=== PATIENT | female | born 1985 | race Caucasian/White ===

== ENCOUNTER 2016-12-26 05:14 | Inpatient (IN) | payer OTHER ==
[~2016-12-26] VITALS: Ht 172.7 cm; Wt 113.4 kg
--- NOTE | 2016-12-26 08:55 | Operative Report ---
Operative/Inv Procedure Report Surgery Date: 12/26/16 Name of Procedure: Primary low flap transverse section via Pfannenstiel skin incision Pre-Operative Diagnosis: breech Post-Operative Diagnosis: Same footling breech Estimated Blood Loss: 500 Surgeon/Car Seat Upholsterer: DAY BARROS,REGGIE Guo Anesthesia: block Operative/Procedure Note Note: Vaginal patient was taken the operating room placed prone position after adequate skin testing for spinal anesthesia skin was cut 2 fingerbreadths of symptoms pubis in midline carried down to rectus fascia which was cut in curvilinear fashion I direction peritoneal cavity was entered high into the abdomen the low blade the Nicola was placed and lower in the incision the visceral peritoneum of the uterus was dissected anteriorly to develop a bladder flap in the lower uterine segment uterus nicked entered with the back of knife dissected bluntly as well as sharply the was delivered over the abdominal wall I complete breech extraction suction well until clear. Cord was reduced clamped and cut and infant was handed to arabic translator was waiting delivering to aid in resuscitation placenta was delivered manually wiped clean with 2 wet dry laps to ensure was free of adherent membranes was oversewn running locking suture in 2 layers after intramyometrial and intra-muscular Pitocin had been started dictating uterine contractility. Uterus re-turned to abdominal cavity. Then was area close amounts warm sounds were clear the peritoneum was reapproximated 0 suture after hemostasis was apparent the fascia was reapproximated to continue sutures of #1 suture the subcutaneous tissue was Bovie coagulated found to be hemostatic the skin was reapproximated pedro at the end of the case the counts correct mother and transported recovery room awake and alert together Findings: Viable female infant three-vessel cord around neck around body times one normal ovaries bilaterally complete for footling breech otherwise normal anatomy
[2016-12-27 04:50] VITALS: BP 157/77
--- NOTE | 2016-12-27 10:40 | PN- Post Delivery/GYN ---
Subjective Subjective: NO COMPLAINTS Objective Last 24 Hrs of Vital Signs/I&O Vital Signs Date Time Temp Pulse Resp B/P Pulse O2 O2 Flow FiO2 Ox Delivery Rate 12/27 0450 157/77 Physical Exam: PE OBESE WF IN NAD AND SOFT DISTENTION INCISION [facility] -[facility] -[facility] Assessment/Plan Assessment/Plan ASSESS S/P C/S FOR BREECH PLAN CONT POC ADVANCE DIET
[2016-12-27 11:09] LABS: ABSOLUTE BASOPHIL COUNT 0 /CUMM (0.0-0.2); ABSOLUTE EOSINOPHIL COUNT 0.1 /CUMM (0.0-0.7); ABSOLUTE MONOCYTE COUNT 0.7 /CUMM (0.10-0.60); PLATELET COUNT 207 /CUMM (130-400); WHITE BLOOD CELL COUNT 10.5 /CUMM (4.8-10.8)
[2016-12-27 11:16] LABS: ABSOLUTE GRANULOCYTE CT 7.8 /CUMM (1.4-6.5); ABSOLUTE LYMPH COUNT 1.9 /CUMM (1.2-3.4); BASOPHIL % 0.2 % (0.0-2.0); EOSINOPHIL % 0.6 % (0-5); GRANULOCYTE % 74.8 % (42.2-75.2); MEAN CORPUSCULAR HGB 27.5 PG (27.0-31.0); MEAN CORPUSCULAR HGB CONC 32.4 G/DL (33.0-37.0); MEAN PLATELET VOLUME 9.2 FL (7.4-10.4); RBC DISTRIBUTION WIDTH 15.4 % (11.5-14.5); RED BLOOD CELL CT 3.49 /CUMM (4.20-5.40)
[2016-12-27 11:18] LABS: HEMATOCRIT 29.7 % (37-47)
[2016-12-28] MEDS ORDERED: PERCOCET 5-3251 EACH PO (13:51)
[2016-12-28] MEDS ORDERED: IBUPROFEN800 M1 PO (13:51)
--- NOTE | 2017-01-15 08:33 | Surgical Discharge Summary ---
Visit Information Visit Dates Admission Date: 12/26/16 Discharge Date: 12/29/16 History of Present Illness Chief Complaint: Breech Medical History Isolation History: Standard Surgical History Pertinent Surgical History: none Psychosocial History What is Your Primary Language? Somali Review of Systems: -13 point review of systems Hospital Course Course Attending Physician: REGGIE BERNSTEIN MD Primary Care Physician: PATIENT HAS NO PRIMARY CARE DR Hospital Course: Her 1-year-old 1 para 0 admitted for a primary low flap transverse section for breech after failed cephalic version patient did well tolerating clear liquid diet first postoperative day discharged home on third postoperative day with normal blood pressures on the following physical exam she 's a pleasant white female HEENT anicteric lungs clear heart S1 and S2 abdomen soft incision clean dry and intact extremities negative edema negative Homans Allergies: Uncoded Allergies: (UNKNOWN ANTIBIOTIC) (Intermediate, RASH FROM UNKNOWN ANTIBIOTIC PER CBC RN, DRUG UNKNOWN 12/26/16) Disposition Summary Disposition Principal Diagnosis: Is post primary low flap transverse section for breech Additional Diagnosis: Anemia Discharge Disposition: home or self care Discharge Instructions General Discharge Information Code Status: Full Code Patient's Diet: R Patient's Activity: On nothing in the vagina for 6 weeks no heavy lifting for 6 weeks no driving for 2 weeks patient may shower Follow-Up Instructions/Appts: 2 weeks in my office 1 week for the removal pedro return visit Medications at Discharge Discharge Medications: Start taking the following new medications: Ibuprofen (Ibuprofen) 800 MG TABLET 800 Milligram ORAL EVERY SIX HOURS NEEDED as needed for UTERINE CRAMPING Qty = 30 No Refills Comments: did not receive in hospital Oxycodone HCl/Acetaminophen (Percocet 5-325 MG Tablet) 5 MG-325 MG TABLET 1 Tablet ORAL EVERY 4 HOURS NEEDED as needed for PAIN SCALE 4-6 (MODERATE ) Qty = 30 No Refills Comments: did not receive in hospital
== END 2016-12-29 11:35 | DRG 766 ==
LOC: GNO 05:14
PROVIDERS: ADMIT Specialist
PROC: 10D00Z1 Extraction of Products of Conception, Low, Open Approach (ICD-10-PCS; principal; 2016-12-26)
DX: O32.8XX0 Maternal care for other malpresentation of fetus, not applicable or unspecified (principal); O69.81X0 Labor and delivery complicated by cord around neck, without compression, not applicable or unspecified; Z3A.39 39 weeks gestation of pregnancy; Z37.0 Single live birth
CPT/HCPCS: GNOS; 36415; 87086; 88307; J0131; J0690; J1580; J1650; J1885; J7120

== ENCOUNTER 2016-12-31 17:19 | Inpatient (IN) | payer OTHER ==
[~2016-12-31] VITALS: Ht 172.7 cm; Wt 104.0 kg
[~2016-12-31 17:19] MED LIST: IBUPROFEN800 M1 PO; PERCOCET 5-3251 EACH PO
[2016-12-31 18:12] LABS: ABSOLUTE BASOPHIL COUNT 0 /CUMM (0.0-0.2); ABSOLUTE EOSINOPHIL COUNT 0.1 /CUMM (0.0-0.7); ABSOLUTE GRANULOCYTE CT 7.9 /CUMM (1.4-6.5); ABSOLUTE LYMPH COUNT 1.7 /CUMM (1.2-3.4); ABSOLUTE MONOCYTE COUNT 0.8 /CUMM (0.10-0.60); BASOPHIL % 0.2 % (0.0-2.0); GRANULOCYTE % 75.6 % (42.2-75.2); HEMATOCRIT 36.9 % (37-47); MEAN CORPUSCULAR HGB 27.6 PG (27.0-31.0); MEAN CORPUSCULAR HGB CONC 32.6 G/DL (33.0-37.0); MEAN CORPUSCULAR VOLUME 84.6 FL (81.0-99.0); MEAN PLATELET VOLUME 8.5 FL (7.4-10.4); PLATELET COUNT 320 /CUMM (130-400); RBC DISTRIBUTION WIDTH 15.8 % (11.5-14.5); RED BLOOD CELL CT 4.36 /CUMM (4.20-5.40); WHITE BLOOD CELL COUNT 10.4 /CUMM (4.8-10.8)
--- NOTE | 2017-01-01 00:21 | RADIOLOGY REPORT ---
EXAMINATION: XR PORTABLE CHEST CLINICAL INFORMATION: Chest pain. COMPARISON: None TECHNIQUE: Portable AP view of the chest was obtained. FINDINGS: The lungs are well expanded. No consolidation, edema, or effusion. No pneumothorax. The cardiomediastinal silhouette is within normal limits for this technique. No acute osseous abnormality. IMPRESSION: No acute pulmonary findings.
--- NOTE | 2017-01-01 00:58 | Cons- Medical ---
OLMAN BARROS,DODIE 01/01/17 0043: General Information and HPI Consulting Request Date of Consult: 01/01/17 Requested By: REGGIE BERNSTEIN MD Reason for Consult: Evaluation for pulmonary embolus Source of Information: patient, family, old records History of Present Illness: Ingrid is a 31-year-old woman status post section for breech . Was admitted to the [facility] for persistent hypertension. At present she is completely asymptomatic. She endorsed some chest discomfort that lasted less than 15 minutes, was nonpleuritic non-positional nonexertional and resolves spontaneously. There was also some rib pain that lasted seconds. She also admits some transient blurring of vision, that has since resolved. She denies any cough lightheadedness dizziness, subjective fevers or chills, calf pain personal or family history of clotting disorders. History of using oral contraceptives, however given she stopped using them more than 10 months ago. Former smoker quit 10 months ago. Allergies/Medications Allergies: Uncoded Allergies: (UNKNOWN ANTIBIOTIC) (Intermediate, RASH FROM UNKNOWN ANTIBIOTIC PER CBC RN, DRUG UNKNOWN 12/26/16) Home Med List: Ibuprofen 800 MG TABLET 800 MG PO Q6P PRN UTERINE CRAMPING Oxycodone HCl/Acetaminophen (Percocet 5-325 MG Tablet) 5 MG-325 MG TABLET 1 TAB PO Q4P PRN PAIN SCALE 4-6 (MODERATE) Current Medications: Current Medications Sig/Vikki Start time Last Medication Dose Route Stop Time Status Admin Dextrose/Lactated 1,000 ML Q13H 12/31 2330 AC 12/31 Ringer's IV 2230 Magnesium Sulfate 4 GM ONCE ONE 12/31 2330 DC 12/31 Sterile Water 100 ML IV 01/01 0029 2145 Magnesium Sulfate 40 GM Q20H 12/31 2330 AC 12/31 Water 1,000 ML IV 2230 Review of Systems Review of Systems Constitutional: Denies: see HPI. All Other Systems: Reviewed and Negative Comments with exceptions noted in hpi Past History Surgical History Surgical History: Psychosocial History Where Do You Live? Home Who Do You Live With? spouse Primary Language: Tongan Smoking Status: Former Smoker ETOH Use: occasional use Illicit Drug Use: denies illicit drug use Exam & Diagnostic Data Last 24 Hrs of Vital Signs/I&O n/a Physical Exam General Appearance: well developed/nourished, no apparent distress, alert, awake Head: atraumatic, normal appearance Eyes: Bilateral: normal appearance, PERRL, EOMI. Ears, Nose, Throat: normal ENT inspection Neck: normal inspection, supple, absence of JVD Respiratory: normal breath sounds, chest non-tender, no respiratory distress, quiet respiration, lungs clear Cardiovascular: regular rate/rhythm Breasts Breast appear nl Peripheral Pulses: 2+ radial (R), 2+ radial (L) Gastrointestinal: normal bowel sounds, soft, non-tender, no organomegaly Rectal: deferred Back: normal inspection Extremities: normal inspection, normal capillary refill, normal range of motion, pedal edema (+1) Neurologic/Psych: no motor/sensory deficits, awake, alert, oriented x 3 Cranial Nerves: normal hearing, normal speech, PERRL, CN II-XII intact, strength 5/5 x 4 ext Skin: intact, normal color Lymphatic: no anterior cervical brittney Last 24 Hrs of Labs/Eddie: Laboratory Tests 01/01/17 1540: Anion Gap 14, Estimated GFR > 60, Glucose 93, Calcium 7.4 L, Phosphorus 5.5 H, Magnesium 6.7 H, Total Bilirubin 1.0, AST 21, ALT 37, Albumin 3.6 01/01/17 0910: Anion Gap 13, Estimated GFR > 60, BUN/Creatinine Ratio 8.8, Phosphorus 5.7 H, Magnesium 6.2 H, CBC w Diff NO MAN DIFF REQ, RBC 4.96, MCV 83.5, MCH 27.6, RDW 15.8 H, MPV 8.2, Gran % 81.7 H, Lymphocytes % 11.8 L, Monocytes % 5.9, Eosinophils % 0.5, Basophils % 0.1, Absolute Granulocytes 8.8 H, Absolute Lymphocytes 1.3, Absolute Monocytes 0.6, Absolute Eosinophils 0, Absolute Basophils 0, PUBS MCHC 33.0 01/01/17 0850: Magnesium Cancelled 01/01/17 0400: Magnesium Cancelled, APTT Cancelled, CBC w Diff Cancelled, WBC Cancelled, RBC Cancelled, Hgb Cancelled, Hct Cancelled, MCV Cancelled, MCH Cancelled, RDW Cancelled, Plt Count Cancelled, MPV Cancelled, PUBS MCHC Cancelled 01/01/17 0305: Anion Gap 8, Estimated GFR > 60, BUN/Creatinine Ratio 11.3, Magnesium 4.4 H, Total Bilirubin 1.1, Direct Bilirubin 0.4, AST 19, ALT 41, Alkaline Phosphatase 110, Jfj-H-Yuijudmcxjr Pept 3720 H, Total Protein 5.9 L, Albumin 3.2 L, PT 10.7, INR 1.02, CBC w Diff NO MAN DIFF REQ, RBC 4.38, MCV 84.0, MCH 27.3, RDW 16.0 H, MPV 8.2, Gran % 71.3, Lymphocytes % 18.4 L, Monocytes % 7.6, Eosinophils % 2.3, Basophils % 0.4, Absolute Granulocytes 6.6 H, Absolute Lymphocytes 1.7, Absolute Monocytes 0.7 H, Absolute Eosinophils 0.2, Absolute Basophils 0, PUBS MCHC 32.5 L Diagnostic Data CXR Results normal Assessment/Plan Assessment/Plan 31-year-old former smoker woman with no medical history status post section for breech admitted with hypertensive urgency. Baby is born at term and healthy. Medical consultation sought for evaluation of pulmonary embolism. Ingrid is not experiencing chest discomfort that is typically seen with pulmonary embolism, is not hypoxic, is not tachycardic. A massive pulmonary embolus would conversely cause hypotension not hypertension. She does not have any JVD. Presently is asymptomatic. VSS stable. Outpatient labs unremarkable. CXR is normal. Unfortunately there is no validated tool to assess pretest probability in . and post- state does put her at risk for hypercoagulability. Nevertheless her well's score for pulmonary embolus is 1.5 i.e. low risk. Checking a d-dimer would be of limited utility in a or post- patient. Her high blood pressure, and the endorsement of blurry vision is concerning. Given low probability and normal CXR she should undergo V/ Q scan if PE moves up on the differential. At this time we are more concerned with her high blood pressure, evidence of pre-eclampsia, and possibility of post - cardiomyopathy. - Problems - Hypertensive emergency Pre-eclampsia ? Pulmonary embolus Recommendations: - Obtain CBC, BMP, LFTs, pro-bnp - Continue to monitor - If dyspneic, suggest ABG, and VQ scan given normal CXR and low probability of PE - Advise adequate BP control, consider labetalol. - EKG now - Echocardiogram in am - Consider cardiology consultation if hypertension refractory to treatment with Mg sulfate and labetalol. Consult Acknowledgment - Thank you for your consult request. MARKY DIAZ 01/01/17 0703: Assessment/Plan Consult Acknowledgment - Thank you for your consult request. Attending MD Review Statement Attending Statement Attending MD Statement: examined this patient, discuss w/resident/PA/HOME DELIVERY DRIVER, agreed w/resident/PA/HOME DELIVERY DRIVER, discussed with family, reviewed EMR data (avail), reviewed images, amended to note Attending Assessment/Plan: Patient's chest tightness and heaviness was transient, improved at the time we assessed patient. PE is low on differential. Preeclampsia, with persistent lower extremity edema, blurry vision, proteinuria, and elevated blood pressure. Agree with labetalol, magnesium, checking BMP, replace electrolytes. If dyspnea, work of breathing, chest tightness persists, consider VQ scan. ProBNP and 2-D echo to rule out cardiomyopathy.
[2017-01-01 03:41] LABS: ABSOLUTE BASOPHIL COUNT 0 /CUMM (0.0-0.2); ABSOLUTE EOSINOPHIL COUNT 0.2 /CUMM (0.0-0.7); ABSOLUTE GRANULOCYTE CT 6.6 /CUMM (1.4-6.5); ABSOLUTE LYMPH COUNT 1.7 /CUMM (1.2-3.4); ABSOLUTE MONOCYTE COUNT 0.7 /CUMM (0.10-0.60); BASOPHIL % 0.4 % (0.0-2.0); EOSINOPHIL % 2.3 % (0-5); GRANULOCYTE % 71.3 % (42.2-75.2); HEMATOCRIT 36.8 % (37-47); MEAN CORPUSCULAR HGB 27.3 PG (27.0-31.0); MEAN CORPUSCULAR HGB CONC 32.5 G/DL (33.0-37.0); MEAN PLATELET VOLUME 8.2 FL (7.4-10.4); PLATELET COUNT 312 /CUMM (130-400); RED BLOOD CELL CT 4.38 /CUMM (4.20-5.40); WHITE BLOOD CELL COUNT 9.2 /CUMM (4.8-10.8)
[2017-01-01 03:42] LABS: PT 10.7 SEC (9.4-12.5)
--- NOTE | 2017-01-01 07:46 | PN- Medicine Consult ---
Assessment/Plan Assessment/Plan Assessment: Assessment- 1. Post HTN, Post day 6, likely preeclampsia 2. Hypertensive emergency 3. Hypokalemia 4. ? post cardiomyopathy Plan: Plan- 1. Pending AM EKG 2. This AM her BP was 158/90, required 10 mg IV poush of labetolol 3. Replete electrolytes and recheck labs at 9 AM 4. Pending echocardiogram 5. Continue Magsulfate drip as per OB-CUSTOMER SERVICE SALES CONSULTANT 6. Consider Cardiology consult 7. She is not tachypnic or tachycardic, consider PE but lower on the differential, if needed will consider V/Q scan 8. Given new crackles on b/l bases will repeat CXR portable to r/o pleural effusion Subjective Subjective: Pt seen and examied, resting comfortably in bed. Offers no complaints. Review of Systems Constitutional: Denies: see HPI. Objective Last 24 Hrs of Vital Signs/I&O Vital Signs Date Time Temp Pulse Resp B/P Pulse O2 O2 Flow FiO2 Ox Delivery Rate 01/01 0305 98.5 90 18 168/100 Physical Exam General Appearance: well developed/nourished, no apparent distress Ears, Nose, Throat: normal pharynx, normal ENT inspection Cardiovascular: regular rate/rhythm, edema Respiratory: normal breath sounds, chest non-tender, no respiratory distress, crackles (b/l bases) Abdomen: normal bowel sounds, soft, non-tender (surgical scar clean and dry) Back: normal inspection, normal range of motion Extremities: normal inspection, normal capillary refill, normal range of motion Reflexes: 2+: knee (R), knee (L), ankle (R), ankle (L). Skin: intact, normal color Current Medications: Current Medications Sig/Vikki Start time Last Medication Dose Route Stop Time Status Admin Dextrose/Lactated 1,000 ML Q13H 12/31 2330 AC 12/31 Ringer's IV 2230 Labetalol HCl 10 MG ONCE ONE 01/01 0715 DC IV 01/01 0716 Labetalol HCl 20 MG ONCE ONE 01/01 0300 DC 01/01 IV 01/01 0301 0305 Magnesium Sulfate 4 GM ONCE ONE 12/31 2330 DC 12/31 Sterile Water 100 ML IV 01/01 0029 2145 Magnesium Sulfate 40 GM Q20H 12/31 2330 AC 03/15 Water 1,000 ML IV 2230 Magnesium Sulfate 40 GM .STK-MED ONE 12/31 2216 DC IV 12/31 221 Potassium Chloride 40 MEQ ONCE ONE 01/01 0445 DC 01/01 PO 01/01 0446 0505 Potassium Chloride 40 MEQ Q13H 01/01 0445 CAN Dextrose/Water 1,000 ML IV Potassium Chloride 40 MEQ Q13H 01/01 0445 AC 01/01 Dextrose/Sodium 1,000 ML IV 0505 Chloride Potassium Chloride 20 MEQ Q13H 01/01 0400 CAN Dextrose/Water 1,000 ML IV Results Last 24 Hrs Lab/Eddie Results: Laboratory Tests 01/01/17 0400: Magnesium Cancelled, APTT Cancelled, CBC w Diff Cancelled, WBC Cancelled, RBC Cancelled, Hgb Cancelled, Hct Cancelled, MCV Cancelled, MCH Cancelled, RDW Cancelled, Plt Count Cancelled, MPV Cancelled, PUBS MCHC Cancelled 01/01/17 0305: Anion Gap 8, Estimated GFR > 60, BUN/Creatinine Ratio 11.3, Magnesium 4.4 H, Total Bilirubin 1.1, Direct Bilirubin 0.4, AST 19, ALT 41, Alkaline Phosphatase 110, Vvi-G-Ixixleatazd Pept 3720 H, Total Protein 5.9 L, Albumin 3.2 L, PT 10.7, INR 1.02, CBC w Diff NO MAN DIFF REQ, RBC 4.38, MCV 84.0, MCH 27.3, RDW 16.0 H, MPV 8.2, Gran % 71.3, Lymphocytes % 18.4 L, Monocytes % 7.6, Eosinophils % 2.3, Basophils % 0.4, Absolute Granulocytes 6.6 H, Absolute Lymphocytes 1.7, Absolute Monocytes 0.7 H, Absolute Eosinophils 0.2, Absolute Basophils 0, PUBS MCHC 32.5 L 12/31/16 1814: Ur Random Creatinine Cancelled, U Random Total Protein Cancelled 12/31/16 1740: Estimated GFR > 60, Uric Acid 6.5 H, AST 19, ALT 42, Lactate Dehydrogenase 681 H, CBC w Diff NO MAN DIFF REQ, RBC 4.36, MCV 84.6, MCH 27.6, RDW 15.8 H, MPV 8.5, Gran % 75.6 H, Lymphocytes % 15.8 L, Monocytes % 7.4, Eosinophils % 1.0, Basophils % 0.2, Absolute Granulocytes 7.9 H, Absolute Lymphocytes 1.7, Absolute Monocytes 0.8 H, Absolute Eosinophils 0.1, Absolute Basophils 0, PUBS MCHC 32.6 L 12/31/16 1730: Ur Random Creatinine 154.1, U Random Total Protein 14.2 H, Protein/Creatinin Ratio 0.00 12/31/16 1730: Urine Color YEL, Urine Clarity CLEAR, Urine pH 7.0, Ur Specific Irons 1.015, Urine Protein TRACE H, Urine Ketones NEG, Urine Nitrite NEG, Urine Bilirubin NEG, Urine Urobilinogen 1.0, Ur Leukocyte Esterase NEG, Ur Microscopic SEDIMENT EXAMINED, Urine RBC 3-5, Ur Epithelial Cells MOD H, Urine Bacteria RARE H, Urine Hemoglobin SMALL H, Urine Glucose NEG Microbiology 01/01 0300 URINE ROUT: Urine Culture - RECD Recent Imaging Studies: PATIENT: JESSI CLAROS PRESENT AGE: 31 PATIENT ACCOUNT NO: [id number] : 84 LOCATION: [facility] ORDERING PHYSICIAN: REGGIE BERNSTEIN MD SERVICE DATE: 12/31/16- EXAM TYPE: RAD - XRY-PORTABLE CHEST XRAY EXAMINATION: XR PORTABLE CHEST CLINICAL INFORMATION: Chest pain. COMPARISON: None TECHNIQUE: Portable AP view of the chest was obtained. FINDINGS: The lungs are well expanded. No consolidation, edema, or effusion. No pneumothorax. The cardiomediastinal silhouette is within normal limits for this technique. No acute osseous abnormality. IMPRESSION: No acute pulmonary findings. DICTATED BY: VILLA REYES MD DATE/TIME DICTATED:01/01/1716 GRANITE COUNTERTOP INSTALLER:FISH DATE/TIME TRANSCRIBED:01/01/1716 CONFIDENTIAL, DO NOT COPY WITHOUT APPROPRIATE AUTHORIZATION. <Electronically signed in Other Vendor System> SIGNED BY: VILLA REYES MD 01/01 0021
--- NOTE | 2017-01-01 09:15 | RADIOLOGY REPORT ---
EXAMINATION: XR PORTABLE CHEST CLINICAL INFORMATION: New crackles at the lung bases. COMPARISON: TECHNIQUE: Portable AP view of the chest was obtained. FINDINGS: The cardiomediastinal silhouette is normal. The lungs appear clear. No consolidation, pulmonary edema, pleural effusion, or pneumothorax is convincingly visualized. No change from prior. The spine is not well visualized due to technique. Otherwise no acute osseous abnormalities are evident. IMPRESSION: No acute abnormality.
--- NOTE | 2017-01-01 09:38 | Cons- CRCU ---
THANG BARROS,[facility] 01/01/17 0938: General Information and HPI History of Present Illness: This is a 31-year-old lady with no significant past medical history, status post section for breech ( day 6), admitted initially to [facility] for evaluation and management of persistent hypertension after she was found to have systolic blood pressure over 160 upon her checkup. Yesterday she endorsed some chest discomfort that lasted less than 15 minutes, was nonpleuritic non-positional nonexertional and resolves spontaneously. There was also some rib pain that lasted seconds. She also admits some transient blurring of vision, that has since resolved. She denies any cough lightheadedness dizziness, subjective fevers or chills, calf pain personal or family history of clotting disorders. History of using oral contraceptives, however given she stopped using them more than 10 months ago. Former smoker quit 10 months ago. At childbirth center patient received magnesium sulfate and labetalol pushes but still blood pressure still remained elevated. Here by it was decided to transfer patient to ICU for close continuous monitoring. At present she denies any blurry vision, headache, dizziness, lightheadedness, chest pain, hypertension, a bit nauseous but no vomiting, no abdominal pain. Allergies/Medications Allergies: Uncoded Allergies: (UNKNOWN ANTIBIOTIC) (Intermediate, RASH FROM UNKNOWN ANTIBIOTIC PER CBC RN, DRUG UNKNOWN 12/26/16) Home Med List: Ibuprofen 800 MG TABLET 800 MG PO Q6P PRN UTERINE CRAMPING Oxycodone HCl/Acetaminophen (Percocet 5-325 MG Tablet) 5 MG-325 MG TABLET 1 TAB PO Q4P PRN PAIN SCALE 4-6 (MODERATE) Past History Surgical History Surgical History: Psychosocial History Where Do You Live? Home Who Do You Live With? spouse Primary Language: Latvian Smoking Status: Former Smoker ETOH Use: occasional use Illicit Drug Use: denies illicit drug use Exam & Diagnostic Data Last 24 Hrs of Vital Signs/I&O Vital Signs Date Time Temp Pulse Resp B/P Pulse O2 O2 Flow FiO2 Ox Delivery Rate 01/01 0931 98.1 93 18 163/104 01/01 0710 99.1 96 18 158/89 01/01 0305 98.5 90 18 168/100 Physical Exam General Appearance: well developed/nourished Head: atraumatic, normal appearance Respiratory: normal breath sounds Assessment/Plan Impression/Plan: This is a 31-year-old lady with no significant past medical history, status post section for breech ( day 6), admitted initially to child[facility] Center for evaluation and management of persistent hypertension after she was found to have systolic blood pressure over 160 upon her checkup. Yesterday she endorsed some chest discomfort that lasted less than 15 minutes, was nonpleuritic non-positional nonexertional and resolves spontaneously. There was also some rib pain that lasted seconds. She also admits some transient blurring of vision, that has since resolved. She denies any cough lightheadedness dizziness, subjective fevers or chills, calf pain personal or family history of clotting disorders. History of using oral contraceptives, however given she stopped using them more than 10 months ago. Former smoker quit 10 months ago. At childbirth center patient received magnesium sulfate and labetalol pushes but still blood pressure still remained elevated. Here by it was decided to transfer patient to ICU for close continuous monitoring. Currently monitoring her for the following conditions: Respiratory: No issues. Currently satting well on room air. Infectious disease: Afebrile, white count stable Cardiovascular: Hypertension: Status post section for breech ( day 6), admitted initially to child[facility] Center for evaluation and management of persistent hypertension after she was found to have systolic blood pressure over 160 upon her checkup. At childbirth center patient received magnesium sulfate and labetalol pushes but still blood pressure still remained elevated. Currently receiving magnesium, labetalol tab 100 mg twice a day, and monitor blood pressure closely. Questionable -induced cardiomyopathy, proBNP 3720, chest x-ray did not show any acute cardiac pulmonary abnormality echocardiogram pending, cardiology on board, with follow-up with recommendation. Hematology : H&H 13.7 and 41.4, platlet 330 Metabolic; Hypo-kalemia: Levels upon presentation to 2.8>>3.2, given 60 mg KDUR, will follow repeat labs. DVT prophylaxis: Diet: Currently on full liquid diet with advance as tolerated Patient is full code. Problem List: 1. Mild pre-eclamptic toxemia 2. Consult Acknowledgment - Thank you for your consult request. PEÑA ARIZA MD 01/01/17 0954: General Information and HPI Consulting Request Date of Consult: 01/01/17 Requested By: Dr. Saba Reason for Consult: hypertension post Source of Information: patient Exam Limitations: no limitations Allergies/Medications Current Medications: Current Medications Sig/Vikki Start time Last Medication Dose Route Stop Time Status Admin Acetaminophen 650 MG ONCE ONE 01/01 0815 DC 01/01 PO 01/01 0816 0815 Dextrose/Lactated 1,000 ML Q13H 12/31 2330 DC 12/31 Ringer's IV 2230 Labetalol HCl 100 MG BID 01/01 1000 AC 01/01 PO 0931 Labetalol HCl 10 MG ONCE ONE 01/01 0715 DC 01/01 IV 01/01 0716 0710 Labetalol HCl 20 MG ONCE ONE 01/01 0300 DC 01/01 IV 01/01 0301 0305 Magnesium Sulfate 4 GM ONCE ONE 12/31 2330 DC 12/31 Sterile Water 100 ML IV 01/01 0029 2145 Magnesium Sulfate 40 GM Q20H 12/31 2330 AC 12/31 Water 1,000 ML IV 2230 Magnesium Sulfate 40 GM .STK-MED ONE 12/31 2217 DC IV 12/31 2218 Potassium Chloride 40 MEQ ONCE ONE 01/01 0445 DC 01/01 PO 01/01 0446 0505 Potassium Chloride 40 MEQ Q13H 01/01 0445 CAN Dextrose/Water 1,000 ML IV Potassium Chloride 40 MEQ Q13H 01/01 0445 AC 01/01 Dextrose/Sodium 1,000 ML IV 0505 Chloride Potassium Chloride 20 MEQ Q13H 01/01 0400 CAN Dextrose/Water 1,000 ML IV Exam & Diagnostic Data Last 48 Hrs of Labs/Eddie: Laboratory Tests 01/02/17 0420: Anion Gap 11, Estimated GFR > 60, Glucose 95, Calcium 7.4 L, Phosphorus 5.0 H, Magnesium 3.5 H, Total Bilirubin 1.1, AST 15, ALT 33, Albumin 3.2 L, CBC w Diff NO MAN DIFF REQ, RBC 4.49, MCV 84.8, MCH 27.3, RDW 15.4 H, MPV 8.0, Gran % 77.3 H, Lymphocytes % 14.7 L, Monocytes % 7.2, Eosinophils % 0.8, Basophils % 0 L, Absolute Granulocytes 9.0 H, Absolute Lymphocytes 1.7, Absolute Monocytes 0.8 H, Absolute Eosinophils 0.1, Absolute Basophils 0, PUBS MCHC 32.2 L 01/01/17 1851: Anion Gap 14, Estimated GFR > 60, Glucose 92, Calcium 7.4 L, Phosphorus 5.0 H, Magnesium 4.1 H, Total Bilirubin 1.1, AST 17, ALT 38, Albumin 3.5 01/01/17 1540: Anion Gap 14, Estimated GFR > 60, Glucose 93, Calcium 7.4 L, Phosphorus 5.5 H, Magnesium 6.7 H, Total Bilirubin 1.0, AST 21, ALT 37, Albumin 3.6 01/01/17 0910: Anion Gap 13, Estimated GFR > 60, BUN/Creatinine Ratio 8.8, Phosphorus 5.7 H, Magnesium 6.2 H, CBC w Diff NO MAN DIFF REQ, RBC 4.96, MCV 83.5, MCH 27.6, RDW 15.8 H, MPV 8.2, Gran % 81.7 H, Lymphocytes % 11.8 L, Monocytes % 5.9, Eosinophils % 0.5, Basophils % 0.1, Absolute Granulocytes 8.8 H, Absolute Lymphocytes 1.3, Absolute Monocytes 0.6, Absolute Eosinophils 0, Absolute Basophils 0, PUBS MCHC 33.0 01/01/17 0850: Magnesium Cancelled 01/01/17 0400: Magnesium Cancelled, APTT Cancelled, CBC w Diff Cancelled, WBC Cancelled, RBC Cancelled, Hgb Cancelled, Hct Cancelled, MCV Cancelled, MCH Cancelled, RDW Cancelled, Plt Count Cancelled, MPV Cancelled, PUBS MCHC Cancelled 01/01/17 0305: Anion Gap 8, Estimated GFR > 60, BUN/Creatinine Ratio 11.3, Magnesium 4.4 H, Total Bilirubin 1.1, Direct Bilirubin 0.4, AST 19, ALT 41, Alkaline Phosphatase 110, Lgo-I-Msbewexlirn Pept 3720 H, Total Protein 5.9 L, Albumin 3.2 L, PT 10.7, INR 1.02, CBC w Diff NO MAN DIFF REQ, RBC 4.38, MCV 84.0, MCH 27.3, RDW 16.0 H, MPV 8.2, Gran % 71.3, Lymphocytes % 18.4 L, Monocytes % 7.6, Eosinophils % 2.3, Basophils % 0.4, Absolute Granulocytes 6.6 H, Absolute Lymphocytes 1.7, Absolute Monocytes 0.7 H, Absolute Eosinophils 0.2, Absolute Basophils 0, PUBS MCHC 32.5 L 12/31/16 1814: Ur Random Creatinine Cancelled, U Random Total Protein Cancelled 12/31/16 1740: Estimated GFR > 60, Uric Acid 6.5 H, AST 19, ALT 42, Lactate Dehydrogenase 681 H, CBC w Diff NO MAN DIFF REQ, RBC 4.36, MCV 84.6, MCH 27.6, RDW 15.8 H, MPV 8.5, Gran % 75.6 H, Lymphocytes % 15.8 L, Monocytes % 7.4, Eosinophils % 1.0, Basophils % 0.2, Absolute Granulocytes 7.9 H, Absolute Lymphocytes 1.7, Absolute Monocytes 0.8 H, Absolute Eosinophils 0.1, Absolute Basophils 0, PUBS MCHC 32.6 L 12/31/16 1730: Ur Random Creatinine 154.1, U Random Total Protein 14.2 H, Protein/Creatinin Ratio 0.00 12/31/16 1730: Urine Color YEL, Urine Clarity CLEAR, Urine pH 7.0, Ur Specific [place] 1.015, Urine Protein TRACE H, Urine Ketones NEG, Urine Nitrite NEG, Urine Bilirubin NEG, Urine Urobilinogen 1.0, Ur Leukocyte Esterase NEG, Ur Microscopic SEDIMENT EXAMINED, Urine RBC 3-5, Ur Epithelial Cells MOD H, Urine Bacteria RARE H, Urine Hemoglobin SMALL H, Urine Glucose NEG Assessment/Plan Other Findings/Comments: Peña Valadez M.D. have examined this patient, reviewed available EMR data, personally reviewed images, discussed with resident/PA/RECRUITMENT OFFICER, discussed management plan with housestaff and nursing staff, discussed managment plan all of healthcare providers, discussed management plan with patient and/or family, agreed with resident/PA/RECRUITMENT OFFICER. The past history and parts of the chart have been autopopulated. Impression 31 year old woman with post htn Plan -cardiology consultation -f/u refractory manager recs -mag drip -bp control and hemodynamic monitoring -echo -mag, phos, k repletion as needed -breast pump from cbc -dvt prophylaxis at all times TTS 60 min Consult Acknowledgment - Thank you for your consult request.
--- NOTE | 2017-01-01 09:38 | Cons- CRCU ---
General Information and HPI Allergies/Medications Allergies: Uncoded Allergies: (UNKNOWN ANTIBIOTIC) (Intermediate, RASH FROM UNKNOWN ANTIBIOTIC PER CBC RN, DRUG UNKNOWN 12/26/16) Home Med List: Ibuprofen 800 MG TABLET 800 MG PO Q6P PRN UTERINE CRAMPING Oxycodone HCl/Acetaminophen (Percocet 5-325 MG Tablet) 5 MG-325 MG TABLET 1 TAB PO Q4P PRN PAIN SCALE 4-6 (MODERATE) Past History Surgical History Surgical History: Psychosocial History Where Do You Live? Home Who Do You Live With? spouse Primary Language: Lithuanian Smoking Status: Former Smoker ETOH Use: occasional use Illicit Drug Use: denies illicit drug use Assessment/Plan Consult Acknowledgment - Thank you for your consult request.
[2017-01-01 09:45] LABS: ABSOLUTE BASOPHIL COUNT 0 /CUMM (0.0-0.2); ABSOLUTE EOSINOPHIL COUNT 0 /CUMM (0.0-0.7); ABSOLUTE GRANULOCYTE CT 8.8 /CUMM (1.4-6.5); ABSOLUTE LYMPH COUNT 1.3 /CUMM (1.2-3.4); ABSOLUTE MONOCYTE COUNT 0.6 /CUMM (0.10-0.60); BASOPHIL % 0.1 % (0.0-2.0); EOSINOPHIL % 0.5 % (0-5); GRANULOCYTE % 81.7 % (42.2-75.2); HEMATOCRIT 41.4 % (37-47); MEAN CORPUSCULAR HGB 27.6 PG (27.0-31.0); MEAN CORPUSCULAR VOLUME 83.5 FL (81.0-99.0); MEAN PLATELET VOLUME 8.2 FL (7.4-10.4); PLATELET COUNT 330 /CUMM (130-400); RBC DISTRIBUTION WIDTH 15.8 % (11.5-14.5); RED BLOOD CELL CT 4.96 /CUMM (4.20-5.40); WHITE BLOOD CELL COUNT 10.8 /CUMM (4.8-10.8)
[2017-01-01 11:00] VITALS: BP 154/86
--- NOTE | 2017-01-01 11:01 | History & Physical Pre-Op ---
General Information and HPI MD Statement: I have seen and personally examined JESSI CLAROS and documented this H&P. The patient is a 31 year old F who presented with a patient stated chief complaint of chest pain. []. Source of Information: patient Exam Limitations: no limitations History of Present Illness: A 31-year-old 1 para 1001 status post section for breech patient returns for her on scheduled return nurses visit with the nurses and her blood pressures noted to be 160 over on 90 patient reports edema visual changes while breast-feeding on feelings of increased anxiety and tearfulness. Patient has PIH labs drawn on the blood work is normal her spot urine protein is elevated her uric acid is slightly elevated 6.4 patient four- part pressure increases with bedrest 170s over 100 the decision is made to keep the patient childbirth center start magnesium sulfate patient received magnesium sulfate I she has a PO2 at the time between 95 and 92 which she presented with was not secondary to mag a chest x-ray was obtained is ready is normal. A on consult is obtained with medicine on patient is on magnesium sulfate to milligrams per hour patient's mag level is lower patient is increased to 3 mg on patient's blood pressure increases again despite labetalol 20 mg IV push patient received another 10 mg of labetalol and blood pressure still elevated. Plan is made for the patient to be moved to the ICU for continuous cardiac monitoring Allergies/Medications Allergies: Uncoded Allergies: (UNKNOWN ANTIBIOTIC) (Intermediate, RASH FROM UNKNOWN ANTIBIOTIC PER CBC RN, DRUG UNKNOWN 12/26/16) Home Med list Ibuprofen 800 MG TABLET 800 MG PO Q6P PRN UTERINE CRAMPING Oxycodone HCl/Acetaminophen (Percocet 5-325 MG Tablet) 5 MG-325 MG TABLET 1 TAB PO Q4P PRN PAIN SCALE 4-6 (MODERATE) Past History Surgical History Pertinent Surgical History: Past Family/Social History Psychosocial History Where Do You Live? Home Who Do You Live With? spouse Primary Language: Syriac Smoking Status: Former Smoker ETOH Use: occasional use Illicit Drug Use: denies illicit drug use Review of Systems Review of Systems: Systems except as stated in HPI Exam & Diagnostic Data Last 24 Hrs of Vital Signs/I&O Vital Signs Date Time Temp Pulse Resp B/P Pulse O2 O2 Flow FiO2 Ox Delivery Rate 01/01 0931 98.1 93 18 163/104 01/01 0710 99.1 96 18 158/89 01/01 0305 98.5 90 18 168/100 Physical Exam: Pleasant obese nervous white female HEENT anicteric Lungs decreased breath sounds at the bases bilaterally Heart S1 and S2 no murmur noted Abdomen soft distention incision clean dry and intact fundus firm nontender Extremities +3 edema +3 reflexes Diagnostic Data CXR Results normal Assessment/Plan Assessment/Plan: Assessment is Plan makes sulfate medicine consult IV fluid limited Pelayo check labs toxemia As Ranked By This Provider Problem List: 1. Mild pre-eclamptic toxemia
--- NOTE | 2017-01-01 11:05 | ULTRASOUND REPORT ---
EXAMINATION: US TRIPLEX LOWER EXTREMITY, BILATERAL CLINICAL INFORMATION: Lower extremity swelling COMPARISON: None TECHNIQUE: Color-flow triplex imaging with spectral analysis and compression Doppler were performed on the bilateral lower extremities. FINDINGS: Respiratory variation, normal compression and augmented flow are noted throughout the bilateral lower extremities. The visualized common femoral vein, superficial femoral vein, profunda femoral vein, popliteal vein and midcalf peroneal and posterior tibial venous segments show no evidence of deep venous thrombosis. There is no Cruz's cyst. IMPRESSION: Normal triplex scan without evidence of deep venous thrombosis involving the bilateral lower extremities.
--- NOTE | 2017-01-01 11:07 | ECHOCARDIOGRAM REPORT ---
JESSI CLAROS Age: 31 : 1985 Gender: F Exam Date: 01/01/2017 07:58 Exam Location: [facility] Ht (in): 68 Wt (lb): 230 BSA: 2.28 BP: 146 / 86 Ordering Physician: DODIE THURMAN MD Referring Physician: DODIE THURMAN MD Technologist: Raul Mccrary RUST Room Number: 305 Indications: CARDIOMYOPATHY Rhythm: Sinus Technical Quality: Technically difficult study FINDINGS Left Ventricle Normal size left ventricle. Mild concentric left ventricular hypertrophy. Normal left ventricular ejection fraction visually estimated at >55 %. Normal left ventricular wall motion. Right Ventricle Normal right ventricular size and function. Right Atrium Normal right atrial size. Left Atrium Mild left atrial dilatation. Mitral Valve Structurally normal mitral valve. Mild mitral regurgitation. Aortic Valve Structurally normal trileaflet aortic valve. Mild aortic regurgitation. Tricuspid Valve Tricuspid valve not well visualized, grossly normal. Trace tricuspid regurgitation. Pulmonic Valve Pulmonic valve not well visualized, grossly normal. Trace pulmonic regurgitation. Pericardium No pericardial effusion. Great Vessels Normal size aortic root. CONCLUSIONS Mild concentric left ventricular hypertrophy. Normal size left ventricle. Normal left ventricular ejection fraction visually estimated at >55 Mild mitral regurgitation. Mild aortic regurgitation. Trace tricuspid regurgitation. Trace pulmonic regurgitation. Todd Hickman M.D. (Electronically Signed) Final Date: 01 January 2017 11:06 MEASUREMENTS (Male / Female) Normal Values 2D ECHO LV Diastolic Diameter PLAX 5.8 cm 4.2 - 5.9 / 3.9 - 5.3 cm LV Systolic Diameter PLAX 3.9 cm 2.1 - 4.0 cm LV Fractional Shortening PLAX 32.8 % 25 - 46 % LV Ejection Fraction 2D Teich 60.4 % IVS Diastolic Thickness 1.0 cm LVPW Diastolic Thickness 1.0 cm LV Relative Wall Thickness 0.3 RV Internal Dim ED PLAX 3.9 cm 1.9 - 3.8 cm LVOT Diameter 1.9 cm Aortic Root Diameter 3.0 cm LA Systolic Diameter LX 4.2 cm 3.0 - 4.0 / 2.7 - 3.8 cm LA Volume 50.0 cm 18 - 58 / 22 - 52 cm Ascending Aorta Diameter 2.8 cm DOPPLER AV Peak Velocity 184.0 cm/s AV Peak Gradient 13.5 mmHg AV Mean Velocity 119.0 cm/s AV Mean Gradient 7.0 mmHg AV Velocity Time Integral 37.5 cm AI Deceleration Gray 160.0 cm/s AI Peak Velocity 442.0 cm/s AI Pressure Half Time 811.0 ms AI Peak Gradient 78.1 mmHg LVOT Peak Velocity 120.0 cm/s LVOT Peak Gradient 5.8 mmHg LVOT Mean Velocity 70.6 cm/s LVOT Mean Gradient 2.0 mmHg LVOT Velocity Time Integral 24.7 cm LVOT Stroke Volume 70.0 cm AV Area Cont Eq vti 1.9 cm AV Area Cont Eq pk 1.8 cm MV Peak Velocity 154.0 cm/s MV Peak Gradient 9.5 mmHg MV Mean Velocity 84.8 cm/s MV Mean Gradient 4.0 mmHg Mitral E Point Velocity 136.0 cm/s MV PHT Velocity 149.0 cm/s MV Deceleration Gray 812.0 cm/s MV Pressure Half Time 55.0 ms MV Area PHT 4.0 cm MV Deceleration Time 176.0 ms PV Peak Velocity 142.0 cm/s PV Peak Gradient 8.1 mmHg PV Mean Velocity 96.1 cm/s PV Mean Gradient 4.0 mmHg PV Velocity Time Integral 31.7 cm
--- NOTE | 2017-01-01 11:44 | Cons- Cardiology ---
General Information and HPI Consulting Request Date of Consult: 01/01/17 Requested By: REGGIE BERNSTEIN MD Reason for Consult: hypertension and preeclampsia History of Present Illness: The patient is a 31-year-old female with no significant past medical history who is status post section 6 days ago. She presented to her physician for a check and was found to have elevated systolic blood pressure of 160/90. She complains of recent lower extremity edema and visual changes. She had a brief episode of chest discomfort which resolved within 15 minutes. She was sent to the emergency department where she continued to have elevated blood pressure. She was treated with IV labetalol and started on p.o. labetalol. She was started on magnesium for preeclampsia. No palpitations. No syncope. No diaphoresis. No nausea or vomiting. Allergies/Medications Allergies: Uncoded Allergies: (UNKNOWN ANTIBIOTIC) (Intermediate, RASH FROM UNKNOWN ANTIBIOTIC PER CBC RN, DRUG UNKNOWN 12/26/16) Home Med List: Ibuprofen 800 MG TABLET 800 MG PO Q6P PRN UTERINE CRAMPING Oxycodone HCl/Acetaminophen (Percocet 5-325 MG Tablet) 5 MG-325 MG TABLET 1 TAB PO Q4P PRN PAIN SCALE 4-6 (MODERATE) Current Medications: Current Medications Sig/Vikki Start time Last Medication Dose Route Stop Time Status Admin Acetaminophen 650 MG Q6P PRN 01/01 1500 AC 01/01 PO 1510 Acetaminophen 650 MG ONCE ONE 01/01 0815 DC 01/01 PO 01/01 0816 0815 Dextrose/Lactated 1,000 ML Q13H 12/31 2330 DC 12/31 Ringer's IV 2230 Labetalol HCl 100 MG BID 01/01 1000 AC 01/01 PO 0931 Labetalol HCl 10 MG ONCE ONE 01/01 0715 DC 01/01 IV 01/01 0716 0710 Labetalol HCl 20 MG ONCE ONE 01/01 0300 DC 01/01 IV 01/01 0301 0305 Magnesium Sulfate 4 GM ONCE ONE 12/31 2330 DC 12/31 Sterile Water 100 ML IV 01/01 0029 2145 Magnesium Sulfate 40 GM Q20H 12/31 2330 AC 12/31 Water 1,000 ML IV 2230 Magnesium Sulfate 40 GM .STK-MED ONE 12/31 2217 DC IV 12/31 2218 Polyethylene Glycol 17 GM DAILY 01/01 1436 AC PO Potassium Chloride 60 MEQ ONCE ONE 01/01 1130 DC 01/01 PO 01/01 1131 1146 Potassium Chloride 40 MEQ ONCE ONE 01/01 0445 DC / PO 01/01 0446 0505 Potassium Chloride 40 MEQ Q13H 01/01 0445 CAN Dextrose/Water 1,000 ML IV Potassium Chloride 40 MEQ Q13H 01/01 0445 DC 01/01 Dextrose/Sodium 1,000 ML IV 0505 Chloride Potassium Chloride 20 MEQ Q13H 01/01 0400 CAN Dextrose/Water 1,000 ML IV Senna 187 MG AT BEDTIME 01/01 2200 AC PO Review of Systems Review of Systems: No fever. No chills. No rash. No tremor. All other systems are reviewed and are noted to be negative. Past History Surgical History Surgical History: Family History Family History Reviewed? Family history was reviewed with the patient and the are no factors contributing to the current presentation. Psychosocial History Where Do You Live? Home Who Do You Live With? spouse Primary Language: Qatari Smoking Status: Former Smoker ETOH Use: occasional use Illicit Drug Use: denies illicit drug use Exam & Diagnostic Data Vital Signs and I&O Vital Signs Date Time Temp Pulse Resp B/P Pulse O2 O2 Flow FiO2 Ox Delivery Rate 01/01 1100 95 Room Air 01/01 1100 98.3 98 22 154/86 95 Room Air 01/01 0931 98.1 93 18 163/104 01/01 0710 99.1 96 18 158/89 01/01 0305 98.5 90 18 168/100 Intake & Output 01/01 1600 01/01 0800 01/01 0000 12/31 1600 12/31 0800 12/31 0000 Intake Total Output Total Balance Patient 229 lb Weight Physical Exam: Gen: The patient is in no acute distress HEENT: Normal nose, ears, and oropharynx. Pupils equal bilaterally. Conjunctiva normal. Neck: Supple with no JVD, no masses, and no thyromegaly Lungs: Clear to auscultation with normal respiratory effort Heart: RRR, S1, S2, no murmurs. Trace peripheral edema, 2+ pulses in the lower extremities bilaterally Abdomen: Soft, nontender, no masses. No hepatomegaly. No splenomegaly Extremities: No clubbing or cyanosis. Normal muscle strength in the upper and lower extremities. Skin: Normal skin turgor with no skin ulcers or lesions noted. Neuro: Cranial nerves intact. Sensation intact Psych: Alert and oriented 3 with appropriate affect Labs/Eddie Results: Laboratory Tests 01/01 01/01 01/01 1540 0910 0850 Chemistry Sodium (137 - 145 mmol/L) Pending 143 Potassium (3.5 - 5.1 mmol/L) Pending 3.2 L Chloride (98 - 107 mmol/L) Pending 104 Carbon Dioxide (22 - 30 mmol/L) Pending 26 Anion Gap (5 - 16) Pending 13 BUN (7 - 17 mg/dL) Pending 7 Creatinine (0.5 - 1.0 mg/dL) Pending 0.8 Estimated GFR (>60 ml/min) > 60 BUN/Creatinine Ratio (7 - 25 %) 8.8 Glucose Pending Calcium Pending Phosphorus (2.5 - 4.5 mg/dL) Pending 5.7 H Magnesium (1.6 - 2.3 mg/dL) Pending 6.2 H Cancelled Total Bilirubin Pending AST Pending ALT Pending Albumin Pending Hematology CBC w Diff NO MAN DIFF REQ WBC (4.8 - 10.8 /CUMM) 10.8 RBC (4.20 - 5.40 /CUMM) 4.96 Hgb (12.0 - 16.0 G/DL) 13.7 Hct (37 - 47 %) 41.4 MCV (81.0 - 99.0 FL) 83.5 MCH (27.0 - 31.0 PG) 27.6 RDW (11.5 - 14.5 %) 15.8 H Plt Count (130 - 400 /CUMM) 330 MPV (7.4 - 10.4 FL) 8.2 Gran % (42.2 - 75.2 %) 81.7 H Lymphocytes % (20.5 - 51.1 %) 11.8 L Monocytes % (1.7 - 9.3 %) 5.9 Eosinophils % (0 - 5 %) 0.5 Basophils % (0.0 - 2.0 %) 0.1 Absolute Granulocytes (1.4 - 6.5 /CUMM) 8.8 H Absolute Lymphocytes (1.2 - 3.4 /CUMM) 1.3 Absolute Monocytes (0.10 - 0.60 /CUMM) 0.6 Absolute Eosinophils (0.0 - 0.7 /CUMM) 0 Absolute Basophils (0.0 - 0.2 /CUMM) 0 PUBS MCHC (33.0 - 37.0 G/DL) 33.0 0316 01/01 12/31 0400 0305 1814 Chemistry Sodium (137 - 145 mmol/L) 140 Potassium (3.5 - 5.1 mmol/L) 2.8 *L Chloride (98 - 107 mmol/L) 105 Carbon Dioxide (22 - 30 mmol/L) 27 Anion Gap (5 - 16) 8 BUN (7 - 17 mg/dL) 9 Creatinine (0.5 - 1.0 mg/dL) 0.8 Estimated GFR (>60 ml/min) > 60 BUN/Creatinine Ratio (7 - 25 %) 11.3 Magnesium (1.6 - 2.3 mg/dL) Cancelled 4.4 H Total Bilirubin (0.2 - 1.3 mg/dL) 1.1 Direct Bilirubin (< 0.4 mg/dL) 0.4 AST (14 - 36 U/L) 19 ALT (9 - 52 U/L) 41 Alkaline Phosphatase (<127 U/L) 110 [id number] Pept (<125 pg/mL) 3720 H Total Protein (6.3 - 8.2 g/dL) 5.9 L Albumin (3.5 - 5.0 g/dL) 3.2 L Coagulation PT (9.4 - 12.5 SEC) 10.7 INR (0.90 - 1.19) 1.02 APTT Cancelled Hematology CBC w Diff Cancelled NO MAN DIFF REQ WBC (4.8 - 10.8 /CUMM) Cancelled 9.2 RBC (4.20 - 5.40 /CUMM) Cancelled 4.38 Hgb (12.0 - 16.0 G/DL) Cancelled 12.0 Hct (37 - 47 %) Cancelled 36.8 L MCV (81.0 - 99.0 FL) Cancelled 84.0 MCH (27.0 - 31.0 PG) Cancelled 27.3 RDW (11.5 - 14.5 %) Cancelled 16.0 H Plt Count (130 - 400 /CUMM) Cancelled 312 MPV (7.4 - 10.4 FL) Cancelled 8.2 Gran % (42.2 - 75.2 %) 71.3 Lymphocytes % (20.5 - 51.1 %) 18.4 L Monocytes % (1.7 - 9.3 %) 7.6 Eosinophils % (0 - 5 %) 2.3 Basophils % (0.0 - 2.0 %) 0.4 Absolute Granulocytes (1.4 - 6.5 /CUMM) 6.6 H Absolute Lymphocytes (1.2 - 3.4 /CUMM) 1.7 Absolute Monocytes (0.10 - 0.60 /CUMM) 0.7 H Absolute Eosinophils (0.0 - 0.7 /CUMM) 0.2 Absolute Basophils (0.0 - 0.2 /CUMM) 0 PUBS MCHC (33.0 - 37.0 G/DL) Cancelled 32.5 L Urines Ur Random Creatinine Cancelled U Random Total Protein Cancelled 12/31 12/31 1740 1730 Chemistry Creatinine (0.5 - 1.0 mg/dL) 0.9 Estimated GFR (>60 ml/min) > 60 Uric Acid (2.5 - 6.2 mg/dL) 6.5 H AST (14 - 36 U/L) 19 ALT (9 - 52 U/L) 42 Lactate Dehydrogenase (313 - 618 U/L) 681 H Hematology CBC w Diff NO MAN DIFF REQ WBC (4.8 - 10.8 /CUMM) 10.4 RBC (4.20 - 5.40 /CUMM) 4.36 Hgb (12.0 - 16.0 G/DL) 12.1 Hct (37 - 47 %) 36.9 L MCV (81.0 - 99.0 FL) 84.6 MCH (27.0 - 31.0 PG) 27.6 RDW (11.5 - 14.5 %) 15.8 H Plt Count (130 - 400 /CUMM) 320 MPV (7.4 - 10.4 FL) 8.5 Gran % (42.2 - 75.2 %) 75.6 H Lymphocytes % (20.5 - 51.1 %) 15.8 L Monocytes % (1.7 - 9.3 %) 7.4 Eosinophils % (0 - 5 %) 1.0 Basophils % (0.0 - 2.0 %) 0.2 Absolute Granulocytes (1.4 - 6.5 /CUMM) 7.9 H Absolute Lymphocytes (1.2 - 3.4 /CUMM) 1.7 Absolute Monocytes (0.10 - 0.60 /CUMM) 0.8 H Absolute Eosinophils (0.0 - 0.7 /CUMM) 0.1 Absolute Basophils (0.0 - 0.2 /CUMM) 0 PUBS MCHC (33.0 - 37.0 G/DL) 32.6 L Urines Ur Random Creatinine (mg/dL) 154.1 U Random Total Protein (0 - 12 mg/dL) 14.2 H Protein/Creatinin Ratio (< 0.2) 0.00 12/31 1730 Urines Urine Color (YEL,AMB,STR) YEL Urine Clarity (CLEAR) CLEAR Urine pH (5.0 - 8.0) 7.0 Ur Specific [place] (1.001 - 1.035) 1.015 Urine Protein (NEG,<30 MG/DL) TRACE H Urine Ketones (NEG) NEG Urine Nitrite (NEG) NEG Urine Bilirubin (NEG) NEG Urine Urobilinogen (0.1 - 1.0 EU/dl) 1.0 Ur Leukocyte Esterase (NEG) NEG Ur Microscopic SEDIMENT EXAMINED Urine RBC (0 - 5 /HPF) 3-5 Ur Epithelial Cells (NONE,FEW) MOD H Urine Bacteria (NEG/NONE) RARE H Urine Hemoglobin (NEG) SMALL H Urine Glucose (N MG/DL) NEG Diagnostic Data EKG Results EKG tracing is independently reviewed, and reveals normal sinus rhythm at 93, QTC 523 CXR Results chest x-ray: Negative Other Results Lower extremity Doppler study January 01, 2017: No evidence of DVT in the bilateral lower extremities Echocardiogram January 01, 2017: Mild concentric left ventricular hypertrophy. Normal size left ventricle. Normal left ventricular ejection fraction visually estimated at >55 Mild mitral regurgitation. Mild aortic regurgitation. Trace tricuspid regurgitation. Trace pulmonic regurgitation. Assessment/Plan Assessment/Plan The patient is a 31-year-old female admitted 1 week after section delivery with possible preeclampsia. She was treated with IV labetalol followed by p.o. labetalol. IV magnesium has been started for preeclampsia. She is noted to be hypokalemic. Echocardiogram reveals normal left ventricular function. Recommendations: * Continue labetalol 100 milligrams p.o. b.i.d. * If blood pressure remains elevated on labetalol, would start sustained release nifedipine, 30 milligrams daily * Potassium chloride has been given for hypokalemia. Would recheck potassium level, and continue to replete as needed. Consult Acknowledgment - Thank you for your consult request.
[2017-01-01 16:00] VITALS: BP 150/90
--- NOTE | 2017-01-01 23:48 | NUR ---
PT WAS OOB TO COMMODE AT 1600. WHILE ON COMMODE PT REPORTED NAUSEA AND SAID, "I THINK I'M GOING TO PASS OUT". MD CALLED. RNS AT BEDSIDE ASSISTED PT TO BED. VSS, PER MD, VASO-VAGAL EPISODE R/T NO BM SINCE 12/25/16. MAG SULFATE ORDERED DC'D AT THAT POINT TO AVOID GOING OVER MAX OF 7.0.
--- NOTE | 2017-01-01 23:52 | NUR ---
DR BERNSTEIN CALLED. UNHAPPY THAT MAG SULFATE HAD BEEN D/C'D. QUERRIE TO WHAT ANTI-SEIZURE MEDICATION WAS ORDERED. PER DR BERNSTEIN, PT SHOULD STAY IN BED WITH DARKENED ROOM. TOLD DR BERNSTEIN THAT [facility] BROUGHT UP BREAST PUMP FOR PT TO "PUMP AND DUMP". DR BERNSTEIN AGREED.
[2017-01-02] VITALS: BP 150/90
--- NOTE | 2017-01-02 01:36 | NUR ---
0000 PATIENT RECEIVED ALERT AND ORIENTED X3, SKIN PINK, WARM AND DRY, PATIENT DENIES ANY C/O DISCOMFORT, DENIES MCGOVERN, DENIES BLURRED VISION, BLE REFLEXES +2, NO CLONUS- MAGNESIUM DRIP HAS BEEN OFF SINCE 1500, BREATHE SOUNDS CLEAR BUT DIMINISHED AT BOTH BASES- O2 SAT AT 93% ON RA, ABDOMEN SOFT, +BS, BENITO TO GRAVITY WITH CLEAR KAYLA COLORED UO, BP 150/90 MANUALLY, 142/80 AUTOCUFF, PATIENT SETTLED FOR SLEEP, CALL LIGHT WITHIN REACH
[2017-01-02 04:59] LABS: ABSOLUTE BASOPHIL COUNT 0 /CUMM (0.0-0.2); ABSOLUTE EOSINOPHIL COUNT 0.1 /CUMM (0.0-0.7); ABSOLUTE LYMPH COUNT 1.7 /CUMM (1.2-3.4); ABSOLUTE MONOCYTE COUNT 0.8 /CUMM (0.10-0.60); BASOPHIL % 0 % (0.0-2.0); EOSINOPHIL % 0.8 % (0-5); GRANULOCYTE % 77.3 % (42.2-75.2); HEMATOCRIT 38.1 % (37-47); MEAN CORPUSCULAR HGB 27.3 PG (27.0-31.0); MEAN CORPUSCULAR HGB CONC 32.2 G/DL (33.0-37.0); MEAN CORPUSCULAR VOLUME 84.8 FL (81.0-99.0); PLATELET COUNT 341 /CUMM (130-400); RBC DISTRIBUTION WIDTH 15.4 % (11.5-14.5); RED BLOOD CELL CT 4.49 /CUMM (4.20-5.40); WHITE BLOOD CELL COUNT 11.7 /CUMM (4.8-10.8)
--- NOTE | 2017-01-02 06:42 | NUR ---
MO CHANGES IN STATUS NOTED OVERNIGHT, SBP 130 TO 150/, PATIENT HAS SLEPT WELL, NO SEIZURE ACTIVITY NOTED
[2017-01-02 08:00] VITALS: BP 138/84
--- NOTE | 2017-01-02 08:51 | PN- Resident CRCU ---
Subjective HPI/CRCU Issues: Patient seen and examined this morning. She was lying in bed in no acute distress. Denies any headache, chest pain, palpitation, nausea, vomiting, abdominal pain, any visual disturbance. Blood pressure with the past 24 hours has been systolic ranging between 150 272, this morning blood pressure was 138/ 84, she is off magnesium drip, remains on labetalol 200 mg twice a day. Diet hasn't been advanced to regular from full liquid, tolerating well. Objective Vital Signs & I&O Last 8 Hrs of Vitals and I&O: Laboratory Tests 01/02/17 0420: Anion Gap 11, Estimated GFR > 60, Glucose 95, Calcium 7.4 L, Phosphorus 5.0 H, Magnesium 3.5 H, Total Bilirubin 1.1, AST 15, ALT 33, Albumin 3.2 L, CBC w Diff NO MAN DIFF REQ, RBC 4.49, MCV 84.8, MCH 27.3, RDW 15.4 H, MPV 8.0, Gran % 77.3 H, Lymphocytes % 14.7 L, Monocytes % 7.2, Eosinophils % 0.8, Basophils % 0 L, Absolute Granulocytes 9.0 H, Absolute Lymphocytes 1.7, Absolute Monocytes 0.8 H, Absolute Eosinophils 0.1, Absolute Basophils 0, PUBS MCHC 32.2 L 01/01/17 1851: Anion Gap 14, Estimated GFR > 60, Glucose 92, Calcium 7.4 L, Phosphorus 5.0 H, Magnesium 4.1 H, Total Bilirubin 1.1, AST 17, ALT 38, Albumin 3.5 01/01/17 1540: Anion Gap 14, Estimated GFR > 60, Glucose 93, Calcium 7.4 L, Phosphorus 5.5 H, Magnesium 6.7 H, Total Bilirubin 1.0, AST 21, ALT 37, Albumin 3.6 01/01/17 0910: Anion Gap 13, Estimated GFR > 60, BUN/Creatinine Ratio 8.8, Phosphorus 5.7 H, Magnesium 6.2 H, CBC w Diff NO MAN DIFF REQ, RBC 4.96, MCV 83.5, MCH 27.6, RDW 15.8 H, MPV 8.2, Gran % 81.7 H, Lymphocytes % 11.8 L, Monocytes % 5.9, Eosinophils % 0.5, Basophils % 0.1, Absolute Granulocytes 8.8 H, Absolute Lymphocytes 1.3, Absolute Monocytes 0.6, Absolute Eosinophils 0, Absolute Basophils 0, PUBS MCHC 33.0 Microbiology 01/01 1100 UPPER RESP: Surveillance Culture - RECD Vital Signs Date Time Temp Pulse Resp B/P Pulse O2 O2 Flow FiO2 Ox Delivery Rate 01/02 0800 98.1 86 20 138/84 98 Room Air 01/02 0400 94 Room Air 01/02 0000 96 Room Air 01/02 0000 98.2 85 22 150/90 93 Room Air 01/01 2221 97.3 78 24 161/199 01/01 1712 82 172/98 01/01 1600 98.5 90 22 150/90 94 Room Air 01/01 1100 95 Room Air 01/01 1100 98.3 98 22 154/86 95 Room Air 01/01 0931 98.1 93 18 163/104 Intake & Output 01/02 1600 01/02 0800 01/02 0000 Intake Total 150 Output Total 285 Balance -135 Intake, Oral 150 Number 0 Bowel Movements Output, Urine 285 Exam General Appearance: well developed/nourished, no apparent distress, alert, awake , comfortable Head: atraumatic, normal appearance Respiratory: normal breath sounds Cardiovascular: regular rate/rhythm Gastrointestinal: normal bowel sounds, soft, non-tender Extremities: normal inspection, no edema Current Medications: Current Medications Sig/Vikki Start time Last Medication Dose Route Stop Time Status Admin Acetaminophen 650 MG Q6P PRN 01/01 1500 AC 01/01 PO 1510 Dextrose/Lactated 1,000 ML Q13H 12/31 2330 DC 12/31 Ringer's IV 2230 Hydralazine HCl 5 MG ONCE ONE 01/01 1730 CAN IV 01/01 1731 Labetalol HCl 200 MG BID 01/01 2200 AC 01/01 PO 2221 Labetalol HCl 10 MG ONCE ONE 01/01 1715 DC 01/01 IV 01/01 1716 1712 Labetalol HCl 100 MG BID 01/01 1000 DC 01/01 PO 0931 Lorazepam 2 MG .STK-MED ONE 01/01 1615 DC IM 01/01 1616 Magnesium Sulfate 40 GM Q20H 12/31 2330 DC 12/31 Water 1,000 ML IV 2230 Polyethylene Glycol 17 GM DAILY 01/01 1436 AC 01/01 PO 1721 Potassium Chloride 40 MEQ ONCE ONE 01/01 2345 CAN PO 01/01 2346 Potassium Chloride 40 MEQ ONCE ONE 01/01 1730 DC /16 PO 01/01 1731 1745 Potassium Chloride 60 MEQ ONCE ONE 01/01 1130 DC /16 PO 01/01 1131 1146 Potassium Chloride 40 MEQ Q13H 01/01 0445 DC 01/01 Dextrose/Sodium 1,000 ML IV 0505 Chloride Senna 187 MG AT BEDTIME 01/01 2200 AC 01/01 PO 2217 Impression/Plan Impression/Problem List Impression: This is a 31-year-old lady with no significant past medical history, status post section for breech ( day 6), [facility] to [facility] for evaluation and management of persistent hypertension after she was found to have systolic blood pressure over 160 upon her checkup. Yesterday she endorsed some chest discomfort that lasted less than 15 minutes, was nonpleuritic non-positional nonexertional and resolves spontaneously. There was also some rib pain that lasted seconds. She also admits some transient blurring of vision, that has since resolved. She denies any cough lightheadedness dizziness, subjective fevers or chills, calf pain personal or family history of clotting disorders. History of using oral contraceptives, however given she stopped using them more than 10 months ago. Former smoker quit 10 months ago. At childbirth center patient received magnesium sulfate and labetalol pushes but still blood pressure still remained elevated. Here by it was decided to transfer patient to ICU for close continuous monitoring. Currently monitoring her for the following conditions: Respiratory: No issues. Currently satting well on room air. Infectious disease: Afebrile, white count stable Cardiovascular: Hypertension: Status post section for breech ( day 6), admitted initially to [facility] for evaluation and management of persistent hypertension after she was found to have systolic blood pressure over 160 upon her checkup. At childbirth center patient received magnesium sulfate and labetalol pushes but still blood pressure still remained elevated. Discontinued magnesium, labetalol tab 100 mg>>200 twice a day, and monitor blood pressure closely. In last 24 hours blood pressure systolic has been ranging between 138 to 155 MM of mercury Questionable -induced cardiomyopathy, proBNP 3720, chest x-ray did not show any acute cardiac pulmonary abnormality echocardiogram showed ejection fraction of greater than 55%, cardiology on board , with follow-up with recommendation. Hematology : No issues, H&H 13.7 and 41.4, platlet 330 Metabolic; Hypo-kalemia: Levels upon presentation to 2.8>>3.2>> 3.7, given 60 mg KDUR, will follow repeat labs. DVT PROPHYLAXIS: Diet: Currently on full liquid diet with advance as tolerated Patient is full code. Problem List: 1. Mild pre-eclamptic toxemia 2. Pain Ratin Tomorrow's Labs & Rationales: Intensive Care Unit bundle Plan DVT/Prophylaxis: pharmacological Code Status: Full Code
[2017-01-02 09:13] VITALS: BP 156/84
--- NOTE | 2017-01-02 09:32 | NUR ---
Patient is alert and oriented x's 3, able to follow commands and respond appropriately. NSR on tele monitor. HR= 70-80's. sbp: 130-150's and receiving po labetolol BID- Denies chest pain at this time. On room air, lungs clear. O2 sats 96-97%. Abdomen is soft, non tender, with + bowel sounds. Po Miralax given- Pelayo in place draining clear yellow urine. Steri-strips intact to area- Mag gtt has been d/c. Patient currently denies pain and vitals stable. Awaiting further orders. Will continue to closely monitor patient.
[2017-01-02] MEDS ORDERED: LABETALOL HCL200 M1 PO (11:21)
--- NOTE | 2017-01-02 11:29 | Patient Discharge Instructions ---
Discharge Instructions General Discharge Information You were seen/treated for: hypertension and preeclampsia You had these procedures: none Special Instructions: Please check your blood pressure atleast three times a day. Watch for any worsening headache, visual disturbances, weakness, numbness anywhere in body, in case of emergency please go to nearest emergency room. Please see Dr. Otto Egan on Thursday(01/05/17), appointment has already been scheduled, this follow-up appointment is very important towards the management of your hypertension to avoid any further complications. Diet Continue normal diet: Yes Recommended Diet: Regular Activity Full Activity/No Limits: Yes Activity Self Limited: Yes Acute Coronary Syndrome Inclusion Criteria At DC or during hospital stay patient has or had the following: ACS DIAGNOSIS No Discharge Core Measures Meds if any: Prescribed or Continued at Discharge Meds if any: NOT Prescribed or Continued at Discharge Congestive Heart Failure Inclusion Criteria At DC or during hospital stay patient has or had the following: CHF DIAGNOSIS No Discharge Core Measures Meds if any: Prescribed or Continued at Discharge Meds if any: NOT Prescribed or Continued at Discharge Cerebrovascular accident Inclusion Criteria At DC or during hospital stay patient has or had the following: CVA/TIA Diagnosis No Discharge Core Measures Meds if any: Prescribed or Continued at Discharge Meds if any: NOT Prescribed or Continued at Discharge Venous thromboembolism Inclusion Criteria VTE Diagnosis No VTE Type NONE VTE Confirmed by (Test) NONE Discharge Core Measures - Per Current guidelines, there needs to be overlap - treatment for the first 5 days of Warfarin therapy. - If discharged on Warfarin prior to 5 days of - overlap therapy, the patient will need to be - assessed for post discharge needs including - *Post discharge parental anticoagulation - *Warfarin and/or parental anticoagulation education - *Follow up date to check INR post discharge At least 5 days overlap therapy as Inpatient No Meds if any: Prescribed or Continued at Discharge Note: Overlap Therapy is Warfarin and Anticoagulant Meds if any: NOT Prescribed or Continued at Discharge
--- NOTE | 2017-01-02 18:46 | PN- Cardiology ---
Subjective Subjective: The patient seems to be doing well and her BP is better controlled on current dose of Labetalol Objective Vital Signs and I&Os Vital Signs Date Time Temp Pulse Resp B/P Pulse O2 O2 Flow FiO2 Ox Delivery Rate 01/02 0913 85 156/84 01/02 0800 98.1 86 20 138/84 98 Room Air 01/02 0400 94 Room Air 01/02 0000 96 Room Air 01/02 0000 98.2 85 22 150/90 93 Room Air 01/01 2221 97.3 78 24 161/199 Intake & Output 01/02 1600 01/02 0800 01/02 0000 01/01 1600 01/01 0800 01/01 0000 Intake Total 150 Output Total 285 Balance -135 Intake, Oral 150 Number 0 Bowel Movements Output, Urine 285 Patient 229 lb Weight Physical Exam: General: The patient is in no acute distress HEENT: Normal nose, ears, and oropharynx. Pupils equal bilaterally. Conjunctiva normal. Neck: Supple with no JVD, no masses, and no thyromegaly Lungs: Clear to auscultation with normal respiratory effort Heart: RRR, S1, S2, no murmurs. Trace peripheral edema, 2+ pulses in the lower extremities bilaterally Abdomen: Soft, nontender, no masses. No hepatomegaly. No splenomegaly Extremities: No clubbing or cyanosis. Normal muscle strength in the upper and lower extremities. Skin: Normal skin turgor with no skin ulcers or lesions noted. Neuro: Cranial nerves intact. Sensation intact Psych: Alert and oriented 3 with appropriate affect Current Medications: Current Medications Sig/Vikki Start time Last Medication Dose Route Stop Time Status Admin Acetaminophen 650 MG Q6P PRN 01/01 1500 DCD 01/01 PO 1510 Labetalol HCl 200 MG BID 01/01 2200 DCD 01/02 PO 0913 Polyethylene Glycol 17 GM DAILY 01/01 1436 DCD 01/02 PO 0913 Potassium Chloride 40 MEQ ONCE ONE 01/01 2345 CAN PO 01/01 2346 Senna 187 MG AT BEDTIME 01/01 2200 DCD 01/01 PO 2217 Results Last 48 Hrs of Labs/Mics: Laboratory Tests 01/02/17 0420: Anion Gap 11, Estimated GFR > 60, Glucose 95, Calcium 7.4 L, Phosphorus 5.0 H, Magnesium 3.5 H, Total Bilirubin 1.1, AST 15, ALT 33, Albumin 3.2 L, CBC w Diff NO MAN DIFF REQ, RBC 4.49, MCV 84.8, MCH 27.3, RDW 15.4 H, MPV 8.0, Gran % 77.3 H, Lymphocytes % 14.7 L, Monocytes % 7.2, Eosinophils % 0.8, Basophils % 0 L, Absolute Granulocytes 9.0 H, Absolute Lymphocytes 1.7, Absolute Monocytes 0.8 H, Absolute Eosinophils 0.1, Absolute Basophils 0, PUBS MCHC 32.2 L 01/01/17 1851: Anion Gap 14, Estimated GFR > 60, Glucose 92, Calcium 7.4 L, Phosphorus 5.0 H, Magnesium 4.1 H, Total Bilirubin 1.1, AST 17, ALT 38, Albumin 3.5 01/01/17 1540: Anion Gap 14, Estimated GFR > 60, Glucose 93, Calcium 7.4 L, Phosphorus 5.5 H, Magnesium 6.7 H, Total Bilirubin 1.0, AST 21, ALT 37, Albumin 3.6 01/01/17 0910: Anion Gap 13, Estimated GFR > 60, BUN/Creatinine Ratio 8.8, Phosphorus 5.7 H, Magnesium 6.2 H, CBC w Diff NO MAN DIFF REQ, RBC 4.96, MCV 83.5, MCH 27.6, RDW 15.8 H, MPV 8.2, Gran % 81.7 H, Lymphocytes % 11.8 L, Monocytes % 5.9, Eosinophils % 0.5, Basophils % 0.1, Absolute Granulocytes 8.8 H, Absolute Lymphocytes 1.3, Absolute Monocytes 0.6, Absolute Eosinophils 0, Absolute Basophils 0, PUBS MCHC 33.0 01/01/17 0850: Magnesium Cancelled 01/01/17 0400: Magnesium Cancelled, APTT Cancelled, CBC w Diff Cancelled, WBC Cancelled, RBC Cancelled, Hgb Cancelled, Hct Cancelled, MCV Cancelled, MCH Cancelled, RDW Cancelled, Plt Count Cancelled, MPV Cancelled, PUBS MCHC Cancelled 01/01/17 0305: Anion Gap 8, Estimated GFR > 60, BUN/Creatinine Ratio 11.3, Magnesium 4.4 H, Total Bilirubin 1.1, Direct Bilirubin 0.4, AST 19, ALT 41, Alkaline Phosphatase 110, [id number]-[id number] Pept 3720 H, Total Protein 5.9 L, Albumin 3.2 L, PT 10.7, INR 1.02, CBC w Diff NO MAN DIFF REQ, RBC 4.38, MCV 84.0, MCH 27.3, RDW 16.0 H, MPV 8.2, Gran % 71.3, Lymphocytes % 18.4 L, Monocytes % 7.6, Eosinophils % 2.3, Basophils % 0.4, Absolute Granulocytes 6.6 H, Absolute Lymphocytes 1.7, Absolute Monocytes 0.7 H, Absolute Eosinophils 0.2, Absolute Basophils 0, PUBS MCHC 32.5 L Microbiology 01/01 1100 UPPER RESP: Surveillance Culture - COMP Assessment/Plan Assessment/Plan Assessment: 1. Post HTN 2. Hypokalemia 3. Murmur Recommendations: - COntinue current labetalol dose. - Ambulate and monitor BP - If BP rises, change dose as necessary - If stable, continue current dose and discharge home today. - Out patient followup next week to recheck BP and readjust meds as necessary. Continue telemetry? No
--- NOTE | 2017-01-03 17:24 | Discharge Summary ---
Visit Information Visit Dates Admission Date: 12/31/16 Discharge Date: 01/02/17 Hospital Course Course Attending Physician: LARRY ARIZA MD Primary Care Physician: PATIENT HAS NO PRIMARY CARE DR Hospital Course: This is a 31-year-old lady with no significant past medical history, status post section for breech ( day 6), [facility] for evaluation and management of persistent hypertension after she was found to have systolic blood pressure over 160 upon her checkup, she endorsed some chest discomfort ,transient blurring of vision, but denied any cough lightheadedness dizziness, subjective fevers or chills, calf pain personal or family history of clotting disorders. She was admitted to ICU for close blood pressure monitoring. She was started on magnesium drip, labetalol, electrolytes were repleted, in next 24 hours blood pressure was adequately controlled, magnesium drip was discontinued, patient was advised to continue with labetalol and follow-up with Dr. Bethea for discharge, she was advised to keep monitoring her blood pressure at home, and to seek emergency care in case of any worsening headache, visual symptoms, any weakness in any part of the body. Allergies: Uncoded Allergies: (UNKNOWN ANTIBIOTIC) (Intermediate, RASH FROM UNKNOWN ANTIBIOTIC PER CBC RN, DRUG UNKNOWN 12/26/16) Significant Procedures: None Disposition Summary Disposition Principal Diagnosis: hypertension and preeclampsia Additional Diagnosis: Hypokalemia Discharge Disposition: home or self care Discharge Instructions General Discharge Information Code Status: Full Code Patient's Diet: Regular Patient's Activity: As tolerated Follow-Up Instructions/Appts: Silvia twice a follow-up with Adriana Bethea MD, an appointment was placed at their services, patient was informed Medications at Discharge Discharge Medications: Continue taking these medications: Ibuprofen (Ibuprofen) 800 MG TABLET 800 Milligram ORAL EVERY SIX HOURS NEEDED as needed for UTERINE CRAMPING Qty = 30 Comments: did not receive in hospital Oxycodone HCl/Acetaminophen (Percocet 5-325 MG Tablet) 5 MG-325 MG TABLET 1 Tablet ORAL EVERY 4 HOURS NEEDED as needed for PAIN SCALE 4-6 (MODERATE ) Qty = 30 Comments: did not receive in hospital Start taking the following new medications: Labetalol HCl (Labetalol HCl) 200 MG TABLET 1 Tablet ORAL TWICE DAILY Qty = 30 No Refills Comments: Last Taken: 3/17/17 Time: 10:00 am Copies To: Latha BETHEA MD; ANNITA BARROS,LARRY
== END 2017-01-02 12:32 | DRG 776 ==
LOC: CBCO 17:19 → GNO 21:36 → CRI 21:36
PROVIDERS: Internal Medicine; Internal Medicine Hematology & Oncology; Student in an Organized Health Care Education/Training Program; ADMIT Specialist
DX: O14.05 Mild to moderate pre-eclampsia, complicating the puerperium (principal); E87.6 Hypokalemia; Z87.891 Personal history of nicotine dependence
CPT/HCPCS: CCU; GNOS; 81001; 82436; 82570; 87086; 93005; 93010; 93306; 93970; J0360; J3475; J7042; J7060